=== PATIENT | male | born 1930 | race Hispanic/Latino ===

== ENCOUNTER 2018-04-21 17:51 | Inpatient (IN) | payer MEDICARE | END 2018-04-25 14:55 | disposition home or self-care (01) | LOC: EDH 17:51 → 3BH 04-22 07:30 → EDHIP 20:14 | DX: J10.00 Influenza due to other identified influenza virus with unspecified type of pneumonia (principal); E87.1 Hypo-osmolality and hyponatremia ==

== ENCOUNTER → 2018-04-21 | Outpatient (CLI) | payer MEDICARE ==
[~2018-04-21] MED LIST: ASPI-555 PO; CHOL200012 PO; ENAL1TAB11 PO; FERR-82 PO; FOLI0.8T21 PO; IPRATROPIUM/ALBUTEROL SULFATE 3 ML SOLUTION IH ONE; METH4TAB3 PO; MULT80TA PO; OSEL75CA17 PO; SIMV40TA5 PO; TAMS0.4C32 PO
== END | disposition home or self-care (01) ==
LOC: EDBD → RAH 13:25
PROVIDERS: ATTEND Internal Medicine
DX: J91.8 Pleural effusion in other conditions classified elsewhere (principal); J10.1 Influenza due to other identified influenza virus with other respiratory manifestations
CPT/HCPCS: 71046

== ENCOUNTER → 2018-08-25 | Outpatient (CLI) | payer MEDICARE ==
[~2018-08-25] MED LIST changes: +ALBU8.5H8 IH; -IPRATROPIUM/ALBUTEROL SULFATE 3 ML SOLUTION IH ONE; +LEVO500T2 PO; +OSEL75 PO
== END | disposition home or self-care (01) ==
LOC: SHCH 12:49
PROVIDERS: ATTEND Internal Medicine Cardiovascular Disease
DX: I11.9 Hypertensive heart disease without heart failure (principal); I25.10 Atherosclerotic heart disease of native coronary artery without angina pectoris; I35.8 Other nonrheumatic aortic valve disorders
CPT/HCPCS: 93306